=== PATIENT | female | born 1985 | race Caucasian/White ===

== ENCOUNTER 2017-03-25 23:31 | Emergency (ER) | payer BC, OTHER ==
[~2017-03-25] VITALS: Ht 154.9 cm; Wt 49.3 kg
[2017-03-25 23:36] VITALS: TEMP 36.7; Ht 154.9 cm; Wt 49.3 kg
--- NOTE | 2017-03-25 23:49 | EMERGENCY ROOM VISIT NOTE ---
History Report prepared by Scribe: Kojo López Under the Supervision of: Dr. Jose Antonio Vanegas D.O. First contact with patient: 23:40 Chief Complaint: HAND PAIN/INJURY Stated Complaint: HURT R HAND History of Present Illness The patient is a 31 year old female who presents to the Emergency Room with complaints of persistent right hand pain since approximately 1629. The patient was working at [employer] when she hit her right hand on a door frame. The patient had some Ibuprofen afterwards. The hand pain is rated 9/10 in severity. She is right-hand dominant. The patient has a history of hip fracture. Source of History: patient Onset: 1629 tonight Position: hand (right) Symptom Intensity: 9/10 Timing: other (persistent) Review of Systems See HPI for pertinent positives and negatives. A total of six systems were reviewed and were otherwise negative. Past Medical & Surgical Medical Problems: (1) Hip fracture Family History No pertinent family history Social History Smoking Status: Never Smoker Occupation Status: employed Current/Historical Medications No Active Prescriptions or Reported Meds Allergies Coded Allergies: No Known Allergies (Unverified , 03/26/17) Physical Exam Vital Signs Date Time Temp Pulse Resp B/P Pulse Ox O2 Delivery O2 Flow Rate FiO2 03/25/17 23:36 36.7 67 16 123/82 99 Room Air Physical Exam GENERAL: Awake, alert, well-appearing, in no distress EXTREMITIES: Ecchymosis over dorsum of right hand. Tenderness over right 2nd and 3rd metacarpals, no significant deformity, neurovascularly intact distally. NEURO: Normal sensorium. No sensory or motor deficits noted. SKIN: No rash or jaundice noted. Medical Decision & Procedures ER Provider Diagnostic Interpretation: X-ray: Per my interpretation. Right hand: Negative for fracture or dislocation. ED Course 2341: The patient was evaluated in room B10. A complete history and physical exam was performed. 0030: I reevaluated the patient. Discussed results and discharge instructions: She verbalized understanding and agreement. The patient is ready for discharge. Medical Decision Differential diagnosis includes sprain strain contusion fracture. X-ray was interpreted by me as negative for fracture dislocation. Patient will be placed on Motrin and will be given a work note Impression Primary Impression: Contusion of hand, right Scribe Attestation The scribe's documentation has been prepared under my direction and personally reviewed by me in its entirety. I confirm that the note above accurately reflects all work, treatment, procedures, and medical decision making performed by me. Departure Information Dispostion Home / Self-Care Prescriptions Ibuprofen (Motrin) 800 Mg Tab 800 MG PO Q8H Y for Pain for 5 Days, #15 TAB Prov: Jose Antonio Vanegas, DO 03/26/17 Referrals No Doctor, Assigned (PCP) Forms HOME CARE DOCUMENTATION FORM, IMPORTANT VISIT INFORMATION Patient Instructions Contusion Bone, My [facility] Work Instructions Return To Work: 1 day Lifting Limitations: no more than 10 pounds
[2017-03-26] MEDS ORDERED: IBUP-1428 PO (00:27)
[2017-03-26 00:42] VITALS: BP 114/65; PULSE 74; O2SAT 98
--- NOTE | 2017-03-26 07:06 | DIAGNOSTIC IMAGING REPORT ---
RIGHT HAND 3 VIEWS CLINICAL HISTORY: Right hand injury. FINDINGS: 3 views of the right hand are obtained. No prior studies are available for comparison at the time of dictation. The skeletal structures are well mineralized. No fracture is seen. The joint spaces of the hand are well-maintained. The overlying soft tissues are within normal limits. IMPRESSION: Unremarkable radiographic assessment of the right hand. Electronically signed by: Jose A Preston M.D. 03/26/2017 7:04 AM Dictated Date/Time: 03/26/2017 7:03 AM
== END 2017-03-26 00:43 | disposition home or self-care (01) ==
LOC: C.EDB 23:32
DX: S60.221A Contusion of right hand, initial encounter (principal); W22.8XXA Striking against or struck by other objects, initial encounter; Y92.511 Restaurant or cafe as the place of occurrence of the external cause; Y99.0 Civilian activity done for income or pay

== ENCOUNTER 2017-09-24 18:04 | Emergency (ER) | payer OTHER, BC ==
[~2017-09-24] VITALS: Ht 154.9 cm; Wt 46.7 kg
[2017-09-24 18:08] VITALS: BP 109/73; TEMP 36.3; Ht 154.9 cm; Wt 46.7 kg
[2017-09-24] MEDS ORDERED: TRAM-10 PO (18:37)
--- NOTE | 2017-09-24 18:41 | EMERGENCY ROOM VISIT NOTE ---
History First contact with patient: 18:13 Chief Complaint: FALL Stated Complaint: L ARM/HIP HURT FROM FALL ON 09/22/17 History of Present Illness The patient is a 32 year old female who presents to the Emergency Room with complaints of left hip pain and left shoulder pain after sustaining a fall at work 2 days ago. 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 She fell onto her left side striking her left shoulder and the lateral aspect of her left hip. She is having pain with bearing weight on the left leg. She is also having pain with range of motion of the left shoulder. She denies any pain in her chest or difficulty breathing. She did not hit her head. She has tried ibuprofen with minimal relief of the pain. Review of Systems 6 system review negative. Please see pertinent positives in the history of present illness section. Past Medical/Surgical History Medical Problems: (1) Hip fracture Otherwise healthy Family History No pertinent family history Social History Smoking Status: Never Smoker Occupation Status: employed Current/Historical Medications Scheduled PRN Ibuprofen Tab (Advil), 400-600 MG PO Q6H PRN for Pain Tramadol (Ultram), 1 TAB PO Q4H PRN for Pain Physical Exam Vital Signs Date Time Temp Pulse Resp B/P (MAP) Pulse Ox O2 Delivery O2 Flow Rate FiO2 09/24/17 19:01 72 16 97 09/24/17 18:08 36.3 81 18 109/73 98 Room Air Physical Exam VITALS: Vitals are noted on the nurse's note and reviewed by myself. Vital signs stable. GENERAL: 32-year-old female, in no acute distress, nondiaphoretic, well- developed well-nourished. SKIN: 2 cm area of old ecchymosis noted to the lateral aspect of the shoulder over the deltoid. Skin is intact. No ecchymosis noted to the left hip. HEAD: Normocephalic atraumatic. NECK: Supple without nuchal rigidity. MUSCULOSKELETAL: LUE: Full passive and active range of motion of the left shoulder including flexion, extension and abduction. LLE: Mild pain with abduction of the left hip. Full flexion and extension. Mild tenderness over the lateral aspect of the greater trochanter. NEURO: Patient was alert and oriented to person place and time. Normal sensation to touch. No focal neurological deficits. Medical Decision & Procedures ED Course The patient was seen and examined Discharge instructions were thoroughly reviewed, and she was discharged in good condition Medical Decision Differential diagnosis: Contusion, fracture, dislocation, sprain This patient is a 32-year-old female presents emergency department 2 days after sustaining a fall at work injuring her left shoulder and left hip. She did not hit her head or lose consciousness. On exam, the patient had a minor contusion over the left deltoid. I did not notice any ecchymosis of the hip. She had near fully range of motion of both the shoulder and the hip. I did not find imaging necessary. I do not suspect a fracture or dislocation. The patient was instructed to rest. She will take ibuprofen. She was given a short prescription for Ultram. If she does not have improvement in her symptoms in the next several days, she will follow-up with her primary care physician. She agrees to return to the emergency department with any new or worsening symptoms. This chart was completed in part utilizing [employer] Speech Voice Recognition software. Attempts were made to minimize the grammatical errors, random word insertions, pronoun errors and incomplete sentences. Any formal questions or concerns about the content, text or information contained within the body of this dictation should be directly addressed to the provider for clarification. Impression Primary Impression: Contusion of multiple sites Departure Information Dispostion Home / Self-Care Condition GOOD Prescriptions Tramadol (Ultram) 50 Mg Tab 1 TAB PO Q4H Y for Pain, #15 TAB For Initial Treatment Prov: Lorraine Villatoro PA-C 09/24/17 Referrals No Doctor, Assigned (PCP) Patient Instructions My [facility] Additional Instructions You were evaluated in the emergency department for left hip pain and left shoulder pain resulting from a fall. This is likely secondary to bruised muscle. Ibuprofen 600 mg and/or Tylenol 500 mg every 8 hours. You may also alternate these medications for more effective pain relief: Ibuprofen --4 HRS--> Tylenol --4 HRS--> ibuprofen --4 HRS--> Tylenol .... Please take Ultram for severe pain. This may be taken with Tylenol or ibuprofen. 1 tab every 4 hours as needed for severe pain. Please do not drink alcohol or drive well taking this medication. Please rest. Intermittently ice the area for 20 minute intervals over the next 24 hours. Then, please apply heat as needed for pain. No strenuous activity until the hip is feeling better. Please follow-up with your primary care physician at this is not improving in the next 5 days Please return to the emergency department with any new or concerning symptoms.
[2017-09-24] MEDS ORDERED: IBUP-103 PO (18:44)
[2017-09-24 19:01] VITALS: PULSE 72; O2SAT 97
== END 2017-09-24 19:03 | disposition home or self-care (01) ==
LOC: C.EDB 18:06 → C.EDD 19:03
DX: S40.012A Contusion of left shoulder, initial encounter (principal); W01.0XXA Fall on same level from slipping, tripping and stumbling without subsequent striking against object, initial encounter; Z87.828 Personal history of other (healed) physical injury and trauma

== ENCOUNTER 2018-01-29 17:23 | Emergency (ER) | payer BC, OTHER ==
[~2018-01-29] VITALS: Ht 152.4 cm; Wt 47.0 kg
[~2018-01-29 17:23] MED LIST: IBUP-103 PO; TRAM-10 PO
[2018-01-29 17:25] VITALS: TEMP 36.9; Ht 152.4 cm; Wt 47.0 kg
[2018-01-29] MEDS ORDERED: MoRPHine SULFATE 4 MG/ML 1 ML CARP\\VIAL IV STA (18:00)
[2018-01-29] MEDS ORDERED: ONDANSETRON INJ 2 MG/ML 2 ML VIAL IV STA (18:00)
[2018-01-29] MEDS ORDERED: SODIUM CHLORIDE 0.9% 1000ML 1,000 ML IV STA (18:00)
--- NOTE | 2018-01-29 18:00 | EMERGENCY ROOM VISIT NOTE ---
History Report prepared by Viviana: Johnathon Dsouza Under the Supervision of: Dr. Dana Jin M.D. First contact with patient: 17:46 Chief Complaint: BACK PAIN Stated Complaint: RT SIDE BACK PAIN, KIDNEY AREA History of Present Illness The patient is a 32 year old female who presents to the Emergency Room with complaints of constant back pain beginning at 0900 this morning. The patient states that she was at work this morning and began to feel sick. She notes that she vomited while at work. She reports that she then began to develop pain in her back. She denies any rash and fever. She reports that she has a history of previous kidney stones and believes that she may have another one. The patient states that she is currently on her period. Source of History: patient Onset: 0900 this morning Position: back Timing: constant Associated Symptoms: + vomiting, No fevers, No rash Review of Systems See HPI for pertinent positives & negatives. A total of 10 systems reviewed and were otherwise negative. Past Medical & Surgical Medical Problems: (1) Hip fracture (2) Kidney stone Family History Hypertension Kidney disease Kidney stones Social History Smoking Status: Never Smoker Marital Status: single Occupation Status: employed Current/Historical Medications Scheduled Ciprofloxacin Hcl (Cipro), 500 MG PO BID Tamsulosin Hcl (Flomax), 0.4 MG PO DAILY Scheduled PRN Oxycodone Immediate Rel Tab (Roxicodone Ir), 1-2 TAB PO Q4H PRN for Severe Pain Allergies Coded Allergies: No Known Allergies (Unverified , 09/12/17) Physical Exam Vital Signs Date Time Temp Pulse Resp B/P (MAP) Pulse Ox O2 Delivery O2 Flow Rate FiO2 01/29/18 19:55 76 16 128/61 98 01/29/18 18:36 85 16 90/60 99 Room Air 01/29/18 17:25 36.9 88 18 109/74 100 Physical Exam Vital signs reviewed. General: Well-appearing 32 yo female, in no significant distress. HEENT: No scleral icterus, PERRLA, neck supple. Atraumatic. Edentulous. Cardiovascular: Regular rate and rhythm, no extra sounds. Pulmonary: Clear to auscultation bilaterally, normal work of breathing. Abdomen: Soft, nontender, nondistended, positive bowel sounds. Musculoskeletal: Atraumatic, no peripheral edema. No CVA tenderness. Neurologic: Patient awake alert and oriented x 3 Skin: Warm, dry, no rash Medical Decision & Procedures ER Provider Diagnostic Interpretation: Radiology results as stated below per my review and radiologist interpretation: ABD/PELVIS NO IV OR ORAL CONT FINDINGS: Lung bases are clear. 5 mm obstructing calculus mid right ureter. Mild right hydroureteronephrosis. Small sub-2 mm punctate calcifications bilaterally considered nonobstructive. Trace amount of perinephric infiltrative change right kidney. Liver spleen and pancreas are considered unremarkable. Bowel pattern is considered nonobstructive. Uterus is anteflexed. Bladder is midline. IMPRESSION: 1. 5 mm obstructing calculus mid right ureter. 2. Mild/moderate right renal hydroureteronephrosis. 3. Several punctate nonobstructing renal calcifications bilaterally. The above report was generated using voice recognition software. It may contain grammatical, syntax or spelling errors. Electronically signed by: Andrew Stringer M.D. 01/29/2018 7:01 PM Laboratory Results 01/29/18 18:20 Red Blood Count 4.37, Mean Corpuscular Volume 87.0, Mean Corpuscular Hemoglobin 30.0, Mean Corpuscular Hemoglobin Concent 34.5, Mean Platelet Volume 11.0, Neutrophils (%) (Auto) 88.2, Lymphocytes (%) (Auto) 6.7, Monocytes (%) (Auto) 4.8, Eosinophils (%) (Auto) 0.0, Basophils (%) (Auto) 0.0, Neutrophils # (Auto) 10.28, Lymphocytes # (Auto) 0.78, Monocytes # (Auto) 0.56, Eosinophils # (Auto) 0.00, Basophils # (Auto) 0.00 01/29/18 18:20 Test 01/29/18 18:05 01/29/18 18:20 Urine Color DK YELLOW Urine Appearance CLOUDY (CLEAR) Urine pH 5.5 (4.5-7.5) Urine Specific [place] 1.023 (1.000-1.030) Urine Protein 1+ (NEG) Urine Glucose (UA) NEG (NEG) Urine Ketones 1+ (NEG) Urine Occult Blood 3+ (NEG) Urine Nitrite NEG (NEG) Urine Bilirubin NEG (NEG) Urine Urobilinogen NEG (NEG) Urine Leukocyte Esterase SMALL (NEG) Urine WBC (Auto) 10-30 /hpf (0-5) Urine RBC (Auto) >30 /hpf (0-4) Urine Hyaline Casts (Auto) 1-5 /lpf (0-5) Urine Epithelial Cells (Auto) 10-20 /lpf (0-5) Urine Bacteria (Auto) NEG (NEG) Urine Test NEG (NEG) White Blood Count 11.65 K/uL (4.8-10.8) Red Blood Count 4.37 M/uL (4.2-5.4) Hemoglobin 13.1 g/dL (12.0-16.0) Hematocrit 38.0 % (37-47) Mean Corpuscular Volume 87.0 fL (80-100) Mean Corpuscular Hemoglobin 30.0 pg (25-34) Mean Corpuscular Hemoglobin Concent 34.5 g/dl (32-36) Platelet Count 199 K/uL (130-400) Mean Platelet Volume 11.0 fL (7.4-10.4) Neutrophils (%) (Auto) 88.2 % Lymphocytes (%) (Auto) 6.7 % Monocytes (%) (Auto) 4.8 % Eosinophils (%) (Auto) 0.0 % Basophils (%) (Auto) 0.0 % Neutrophils # (Auto) 10.28 K/uL (1.4-6.5) Lymphocytes # (Auto) 0.78 K/uL (1.2-3.4) Monocytes # (Auto) 0.56 K/uL (0.11-0.59) Eosinophils # (Auto) 0.00 K/uL (0-0.5) Basophils # (Auto) 0.00 K/uL (0-0.2) RDW Standard Deviation 42.2 fL (36.4-46.3) RDW Coefficient of Variation 13.0 % (11.5-14.5) Immature Granulocyte % (Auto) 0.3 % Immature Granulocyte # (Auto) 0.03 K/uL (0.00-0.02) Anion Gap 5.0 mmol/L (3-11) Est Creatinine Clear Calc Drug Dose 53.7 ml/min Estimated GFR () 78.3 Estimated GFR (Non- 67.6 BUN/Creatinine Ratio 19.7 (10-20) Calcium Level 8.6 mg/dl (8.5-10.1) Total Bilirubin 0.8 mg/dl (0.2-1) Direct Bilirubin 0.2 mg/dl (0-0.2) Aspartate Amino Transf (AST/SGOT) 14 U/L (15-37) Alanine Aminotransferase (ALT/SGPT) 19 U/L (12-78) Alkaline Phosphatase 53 U/L (45-117) Total Protein 7.6 gm/dl (6.4-8.2) Albumin 4.1 gm/dl (3.4-5.0) Date/Time Source Procedure Growth Status 01/29/18 18:05 Urine , Clean Catch Urine Culture - Final MORE THAN THREE TYPES OF ORGANISMS GA... Complete Laboratory results per my review. Medications Administered Medications (Trade) Dose Ordered Sig/Steven Route Start Time Stop Time Status Last Admin Dose Admin Sodium Chloride 1,000 ml @ 999 mls/hr Q1H1M STAT IV 01/29/18 18:00 01/29/18 19:00 DC 01/29/18 18:00 999 MLS/HR Morphine Sulfate (MoRPHine SULFATE INJ) 4 mg NOW STAT IV 01/29/18 18:00 01/29/18 18:02 DC 01/29/18 18:31 4 MG Ondansetron HCl (Zofran Inj) 4 mg NOW STAT IV 01/29/18 18:00 01/29/18 18:02 DC 01/29/18 18:31 4 MG ED Course 1757: Past medical records reviewed. The patient was evaluated in room B3. A complete history and physical examination was performed. 1800: Zofran Inj 4mg IV, Morphine Sulfate 4mg IV, Sodium Chloride 1000 ml @ 999 mls/hr IV 7: I reevaluated and updated the patient. 0: I rechecked the patient. She will follow up with [facility] urology. Upon reevaluation, the patient appeared to have improvement of her symptoms. I discussed findings with her. She verbalized agreement of the treatment plan. The patient was discharged home. Medical Decision Differential diagnosis: Etiologies such as renal colic, appendicitis, diverticulitis, mesenteric ischemia, aortic pathology, infections, inflammatory bowel disease, PUD, biliary pathology, UTI, as well as others were entertained. This pt was evaluated and appeared to be in no distress. IV access was obtained and lab work was drawn. Pt was placed on the carpenter streetcar. IVF were initiated. She was given IV morphine and zofran for pain and nausea. CT scan of abd and pelvis was performed and is significant for 5 mm in R mid ureter. UA is contaminated and ? for infection. It will be sent for culture. Pt was asked to f/u with urology this week. She was d/c with Rx for flomax, oxy IR and cipro. She was advised not to drive if taking Oxy. Pt will return to the ED for worsening of symptoms or any medical concerns. Medication Reconcilliation Current Medication List: was personally reviewed by me Blood Pressure Screening Patient's blood pressure: Normal blood pressure Blood pressure disposition: Did not require urgent referral Impression Primary Impression: Ureteral obstruction, right Additional Impression: Renal colic Scribe Attestation The scribe's documentation has been prepared under my direction and personally reviewed by me in its entirety. I confirm that the note above accurately reflects all work, treatment, procedures, and medical decision making performed by me. Departure Information Dispostion Home / Self-Care Prescriptions Oxycodone Immediate Rel Tab (ROXICODONE IR) 5 Mg Tab 1-2 TAB PO Q4H Y for Severe Pain, #24 TAB Prov: Dana Jin M.D. 01/29/18 Tamsulosin Hcl (FLOMAX) 0.4 Mg Cap 0.4 MG PO DAILY for 7 Days, #7 CAP Prov: Dana Jin M.D. 01/29/18 Ciprofloxacin Hcl (CIPRO) 500 Mg Tab 500 MG PO BID, #14 TAB Prov: Dana Jin M.D. 01/29/18 Referrals No Doctor, Assigned (PCP) Forms HOME CARE DOCUMENTATION FORM, IMPORTANT VISIT INFORMATION Patient Instructions My [facility] Additional Instructions Diagnosis: Kidney stone Strain all of your urine and take the stone for analysis. Increase fluids. Tylenol 650 mg every 6 hours as needed for pain (Maximum 3000 mg Tylenol in 24 hr period). Oxy IR 1-2 tablets every 4-6 hrs as needed for worse pain. No driving, working, or alcohol use with Oxy IR. Follow up sooner for fever >101, vomiting, or significant increase in pain not controlled with medication. Cipro 500 mg twice daily for 7 days. Flomax 0.4 mg daily. Follow-up with urology, Dr. Russo see below, this week for reevaluation, please call Wednesday morning for an appointment time. Problem Qualifiers
[2018-01-29 18:38] LABS: HEMOGLOBIN 13.1 g/dL (12.0-16.0); IG# 0.03 K/uL (0.00-0.02); LYMPH % 6.7 %; LYMPH ABS # 0.78 K/uL (1.2-3.4); MEAN CORPUSCULAR HGB CONC 34.5 g/dl (32-36); MONO % 4.8 %; MONO ABS # 0.56 K/uL (0.11-0.59); NEUT % 88.2 %; NEUT ABS # 10.28 K/uL (1.4-6.5); PLATELET COUNT 199 K/uL (130-400); RED CELL DISTRIBUTION WIDTH SD 42.2 fL (36.4-46.3); WHITE BLOOD COUNT 11.65 K/uL (4.8-10.8)
[2018-01-29 18:57] LABS: ALBUMIN 4.1 gm/dl (3.4-5.0); CALCIUM 8.6 mg/dl (8.5-10.1); CREATININE 1.09 mg/dl (0.60-1.20); POTASSIUM 3.7 mmol/L (3.5-5.1)
[2018-01-29 19:00] LABS: TOTAL PROTEIN 7.6 gm/dl (6.4-8.2)
--- NOTE | 2018-01-29 19:02 | DIAGNOSTIC IMAGING REPORT ---
ABD/PELVIS NO IV OR ORAL CONT CT DOSE: 232.05 mGy.cm HISTORY: Flank pain R flank pain TECHNIQUE: Multiaxial CT images of the abdomen and pelvis were performed without contrast. A dose lowering technique was utilized adhering to the principles of ALARA. COMPARISON STUDY: None. FINDINGS: Lung bases are clear. 5 mm obstructing calculus mid right ureter. Mild right hydroureteronephrosis. Small sub-2 mm punctate calcifications bilaterally considered nonobstructive. Trace amount of perinephric infiltrative change right kidney. Liver spleen and pancreas are considered unremarkable. Bowel pattern is considered nonobstructive. Uterus is anteflexed. Bladder is midline. IMPRESSION: 1. 5 mm obstructing calculus mid right ureter. 2. Mild/moderate right renal hydroureteronephrosis. 3. Several punctate nonobstructing renal calcifications bilaterally. The above report was generated using voice recognition software. It may contain grammatical, syntax or spelling errors. Electronically signed by: Andrew Stringer M.D. 01/29/2018 7:01 PM Dictated Date/Time: 01/29/2018 6:59 PM
[2018-01-29] MEDS ORDERED: TAMS0.4C38 PO (19:46)
[2018-01-29] MEDS ORDERED: CIPR-255 PO (19:46)
[2018-01-29] MEDS ORDERED: OXYC1TAB3 PO (19:46)
[2018-01-29 19:55] VITALS: BP 128/61; PULSE 76; O2SAT 98
== END 2018-01-29 19:56 | disposition home or self-care (01) ==
LOC: C.EDB 17:24
DX: N13.5 Crossing vessel and stricture of ureter without hydronephrosis (principal); N23 Unspecified renal colic; Z82.49 Family history of ischemic heart disease and other diseases of the circulatory system

== ENCOUNTER → 2018-02-03 | Outpatient (CLI) | payer OTHER ==
[~2018-02-03] MED LIST changes: +CIPR-255 PO; +CIPR1TAB10 PO; -IBUP-103 PO; +OXYC-57 PO; +OXYC1TAB3 PO; +TAMS0.4C38 PO; -TRAM-10 PO
--- NOTE | 2018-02-03 09:15 | DIAGNOSTIC IMAGING REPORT ---
KUB CLINICAL HISTORY: N20.0 NEPHROLITHIASIS COMPARISON STUDY: 02/01/2018 FINDINGS: There is no pathologic bowel dilatation. There are no calcifications suspicious for renal calculi. There is a 7 mm calcification projected just inferior to the right L5 transverse process. This is consistent with the previously described right ureteral calculus IMPRESSION: 7 mm calcification projected just inferior to the right L5 transverse process. This is consistent with the previously described right ureteral calculus Electronically signed by: Gian Mckeon M.D. 02/03/2018 9:14 AM Dictated Date/Time: 02/03/2018 9:12 AM
== END | disposition home or self-care (01) ==
LOC: C.LAB 08:45
PROVIDERS: ATTEND Urology
DX: N20.0 Calculus of kidney (principal)

== ENCOUNTER → 2018-02-04 | Day surgery (SDC) | payer OTHER ==
--- NOTE | 2018-02-01 14:42 | DIAGNOSTIC IMAGING REPORT ---
KUB CLINICAL HISTORY: Nephrolithiasis. FINDINGS: 2 AP supine abdominal radiographs are compared to study dated 05/07/2014 and correlated with abdominal CT dated 01/29/2018. There is a nonobstructed abdominal bowel gas pattern noting moderate colonic fecal retention. A punctate nonobstructing calculus projects over the lower pole of the right kidney. No left renal calculi are clearly identified. A 7 mm calcification projects over the right sacral ala and may represent a ureteral stone when correlated with 01/29/[address] The bony structures appear intact. IMPRESSION: 1. A 7 mm calcification projects over the right sacral ala. This may represent a ureteral stone when correlated with the recent abdominal CT scan. 2. An additional punctate nonobstructing calculus projects over the lower pole of the right kidney. Electronically signed by: Jose A Preston M.D. 02/01/2018 2:41 PM Dictated Date/Time: 02/01/2018 2:39 PM
[2018-02-03 12:35] VITALS: Ht 152.4 cm; Wt 47.7 kg
[~2018-02-04] VITALS: Ht 152.4 cm; Wt 47.7 kg
[~2018-02-04] MED LIST changes: +ATROPINE SULFATE 0.1 MG/ML 5ML SYR IV PRN; -CIPR-255 PO; +CIPROFLOXACIN 400MG / D5W IV SCH; +DEXAMETHASONE SOD INJ 4 MG/ML VIAL ONE; +EpHEDrine SULFATE INJ 50 MG/ML AMP IV PRN; +EpHEDrine SULFATE INJ 50 MG/ML AMP ONE; +FENTANYL CITRATE INJ 50 MCG/1 ML 2 ML VIAL IV PRN; +FENTANYL CITRATE INJ 50 MCG/1 ML 2 ML VIAL ONE; +LACTATED RINGER'S 1000ML 1,000 ML IV SCH; +LIDOCAINE HCL 2% 2 ML VIAL (20MG/ML) ONE; +MIDAZOLAM HCL 1 MG/ML 2ML VIAL ONE; +ONDANSETRON INJ 2 MG/ML 2 ML VIAL IV PRN; +ONDANSETRON INJ 2 MG/ML 2 ML VIAL ONE; -OXYC1TAB3 PO; +OXYCODONE/ACETAMINOPHEN 5-325 TAB PO PRN; +PROPOFOL IV EMULSION 10 MG/ML 20 ML VIAL IV ONE; -TAMS0.4C38 PO
--- NOTE | 2018-02-04 08:53 | History & Physical Bridge Note ---
H&P Re-Evaluation Bridge Note: I have examined the patient, reviewed the History & Physical and in the interval since the performance of the History & Physical I have noted the following changes of clinical significance: No changes noted
--- NOTE | 2018-02-04 09:32 | [facility] Operative Report ---
Operative Report Operative Date Feb 04, 2018. Pre-Operative Diagnosis Right Ureteral Calculi Post-Operative Diagnosis Same Procedure(s) Performed Right Extracorporeal Shock Wave Lithotripsy Surgeon Dr. Nehemias Parsons Art Dealer Surgeon(s) None Estimated Blood Loss 0 Findings Right ureteral stone Specimens None Drains None Anesthesia Type General Complication(s) none Disposition yes Recovery Room / PACU Indications Right ureteral stone Description of Procedure Patient was identified in the preoperative holding area, appropriate informed consent was reviewed and completed and the patient was transported to the operating suite. Upon arrival appropriate preoperative antibiotics were administered and general anesthesia induced. The patient was placed in supine position and the stone was localized under fluoroscopy. A total of [__3000_] shocks were delivered to the stone. There appeared to be good fragmentation of the stone. Details of this procedure can be found on the [facility] information sheet. At the conclusion of the case the patient was extubated and taken to the PACU in stable condition. There were no complications. I attest to the content of the Intraoperative Record and any orders documented therein. Any exceptions are noted below.
--- NOTE | 2018-02-04 09:35 | Discharge Instructions-SurgCtr ---
Discharge Instructions Date of Service Feb 04, 2018. Visit Reason for Visit: STONE Discharge Discharge Diagnosis / Problem: ureteral stone Discharge Goals Goal(s): Therapeutic intervention Activity Recommendations Activity Limitations: per Instructions/Follow-up section Exercise/Sports Limitations: rest today May Resume Sexual Activity: when tolerated Shower/Bathe: no limitations Driving or Machine Use: resume 1 day after discharge Anesthesia . Post Anesthesia Instructions: If you have had General Anesthesia or IV Sedation: * Do not drive today. * Resume driving when surgeon permits. * Do not make important decisions or sign legal documents today. * Call surgeon for: 1. Temperature elevations greater than 101 degrees F. 2. Uncontrollable pain. 3. Excessive bleeding. 4. Persistent nausea and vomiting. 5. Medication intolerance (nausea, vomiting or rash). * For nausea and vomiting use only clear liquids such as: tea, soda, bouillon until nausea subsides, then gradually increase diet as tolerated. * If you have any concerns or questions, call your surgeon's office. If physician is unavailable and it is an emergency, call 911 or go to the nearest emergency room. . Instructions / Follow-Up Instructions / Follow-Up MEDICATIONS: Resume previous medications unless instructed otherwise by your surgeon. Resume pre-ES[facility] medication except for aspirin, coumadin or other blood thinners. __ Toradol 10 mg every 6 hours for initial pain. __ Lortab 5 mg 1-2 every 4 hours for pain. _x_ Percocet 5 mg 1-2 every 4 hours for pain. __ Macrodantin 50 mg x 3 a day. __ Flomax 1 tab daily one half (1/2) hour after supper. SPECIAL CARE INSTRUCTIONS: 1. Get KUB (x-ray) _x_ day before or day of office visit and bring x-ray to office __ get x-ray 2 days before and tell office you are getting x-rays when you call for the appointment. 2. Strain ALL urine. 3. Please call if you have a fever, chills, severe pain, or constant dribbling of urine. 4. Office phone number . FOLLOW UP VISIT: Please call the office to schedule a follow-up appointment at . Diet Recommendations Home Diet: resume previous diet Procedures Procedures Performed: Right Extracorporeal Shock Wave Lithotripsy Pending Studies Studies pending at discharge: no Medical Emergencies . Who to Call and When: Medical Emergencies: If at any time you feel your situation is an emergency, please call 911 immediately. . Non-Emergent Contact Non-Emergency issues call your: Urologist Call Non-Emergent contact if: temperature is above 101.5, your pain is not controlled . . "Provider Documentation" section prepared by Jose Antonio Cai. . [place] Drug Monitoring Program Search Results: patient reviewed within database
[2018-02-04 10:46] VITALS: TEMP 37.1
[2018-02-04 11:13] VITALS: BP 106/70; PULSE 89; O2SAT 100
--- NOTE | 2018-02-04 11:22 | Anesthesiology Progress Note ---
Anesthesia Post Op Note Date & Time Feb 04, 2018 at 11:22 Vital Signs Pain Intensity: 0 Vital Signs Past 12 Hours Date Time Temp Pulse Resp B/P (MAP) Pulse Ox O2 Delivery O2 Flow Rate FiO2 02/04/18 11:13 89 16 106/70 (82) 100 Room Air 02/04/18 10:46 37.1 76 16 110/70 (83) 100 Room Air 02/04/18 10:40 119/75 02/04/18 10:39 81 14 02/04/18 10:39 83 14 100 02/04/18 10:38 36.8 81 15 119/75 100 Room Air 02/04/18 10:35 122/70 02/04/18 10:34 76 15 02/04/18 10:34 77 15 100 02/04/18 10:30 121/73 02/04/18 10:29 86 15 02/04/18 10:29 83 15 100 02/04/18 10:25 125/74 02/04/18 10:24 82 14 02/04/18 10:24 80 14 100 02/04/18 10:20 118/75 02/04/18 10:19 84 13 100 02/04/18 10:19 88 13 02/04/18 10:15 119/71 02/04/18 10:14 92 17 02/04/18 10:14 92 17 100 02/04/18 10:10 117/74 02/04/18 10:09 70 14 02/04/18 10:09 69 14 100 02/04/18 10:05 114/71 02/04/18 10:04 73 14 114/72 100 02/04/18 10:04 36.5 73 16 117/72 100 Mask 6 02/04/18 10:04 73 14 02/04/18 07:17 36.7 77 16 115/77 (90) 99 Room Air Notes Mental Status: alert / awake / arousable, participated in evaluation Pt Amnestic to Procedure: Yes Nausea / Vomiting: adequately controlled Pain: adequately controlled Airway Patency, RR, SpO2: stable & adequate BP & HR: stable & adequate Hydration State: stable & adequate Anesthetic Complications: no major complications apparent
== END | disposition home or self-care (01) ==
LOC: X.SURG 07:05
PROVIDERS: ATTEND Urology
DX: N20.1 Calculus of ureter (principal)

== ENCOUNTER → 2018-02-14 | Outpatient (CLI) | payer OTHER ==
[~2018-02-14] MED LIST changes: -ATROPINE SULFATE 0.1 MG/ML 5ML SYR IV PRN; -CIPROFLOXACIN 400MG / D5W IV SCH; -DEXAMETHASONE SOD INJ 4 MG/ML VIAL ONE; -EpHEDrine SULFATE INJ 50 MG/ML AMP IV PRN; -EpHEDrine SULFATE INJ 50 MG/ML AMP ONE; -FENTANYL CITRATE INJ 50 MCG/1 ML 2 ML VIAL IV PRN; -FENTANYL CITRATE INJ 50 MCG/1 ML 2 ML VIAL ONE; -LACTATED RINGER'S 1000ML 1,000 ML IV SCH; -LIDOCAINE HCL 2% 2 ML VIAL (20MG/ML) ONE; -MIDAZOLAM HCL 1 MG/ML 2ML VIAL ONE; -ONDANSETRON INJ 2 MG/ML 2 ML VIAL IV PRN; -ONDANSETRON INJ 2 MG/ML 2 ML VIAL ONE; -OXYCODONE/ACETAMINOPHEN 5-325 TAB PO PRN; -PROPOFOL IV EMULSION 10 MG/ML 20 ML VIAL IV ONE
--- NOTE | 2018-02-14 07:58 | DIAGNOSTIC IMAGING REPORT ---
KUB HISTORY: Follow-up study in a patient with nephrolithiasis NEPHROLITHIASIS N20.0 COMPARISON: KUB 02/03/2018, CT 01/29/2018. FINDINGS: The bowel gas pattern is non-obstructive. There is no organomegaly. Previously noted 7 mm calculus of the right ureter is no longer identified. Punctate density of the superior pole right kidney suggests calculus. There is moderate volume of stool throughout. No pneumoperitoneum or pneumatosis. No fracture. IMPRESSION: 1. Left renal shadow is obscured by formed colonic stool. No ureteral calculi identified. 2. Right-sided nephrolithiasis redemonstrated. Electronically signed by: Kevin Fong M.D. 02/14/2018 7:56 AM Dictated Date/Time: 02/14/2018 7:51 AM
== END | disposition home or self-care (01) ==
LOC: C.RAD 07:34
PROVIDERS: ATTEND Urology
DX: N20.0 Calculus of kidney (principal)